=== PATIENT | male | born 1970 | race Caucasian/White ===

== ENCOUNTER 2017-02-19 10:46 | Emergency (ER) | payer BC ==
[~2017-02-19] VITALS: Ht 180.3 cm; Wt 150.0 kg
[2017-02-19] MEDS ORDERED: HYDROCODON-ACE1 EAC7 PO (11:12)
[2017-02-19] MEDS ORDERED: TRAMADOL HCL50 MG PO (11:13)
[2017-02-19] MEDS ORDERED: GLIPIZIDE5 MG PO (11:13)
[2017-02-19] MEDS ORDERED: ATORVASTATIN CA10 MG PO (11:14)
[2017-02-19] MEDS ORDERED: PANTOPRAZOLE SO40 MG PO (11:14)
[2017-02-19] MEDS ORDERED: LOSARTAN-HCTZ1 EACH PO (11:14)
[2017-02-19] MEDS ORDERED: CYCLOBENZAPRINE10 MG PO (11:15)
[2017-02-19] MEDS ORDERED: IBUPROFEN600 MG PO (11:15)
[2017-02-19 11:40] LABS: BASOPHIL COUNT 0.1 K/uL (0-0.1); EOSINOPHIL COUNT 0.3 K/uL (0-0.3); HEMATOCRIT 41.5 % (38.0-50.0); IMMATURE GRANULOCYTE (%) 0.5 % (0.0-0.7); INSTRUMENT ABS NEUTROPHIL CT 5.4 K/uL; LYMPHOCYTE COUNT 1.7 K/uL (1.0-2.8); MCH 29.3 PG (29.0-34.0); MCHC 34.2 G/DL (30.0-36.0); MCV 85.7 FL (86-99); MONOCYTE (%) 6.4 % (3-12); MONOCYTE COUNT 0.5 K/uL (0-0.8); NEUTROPHIL (%) 67.3 % (45-76); NEUTROPHIL COUNT 5.4 K/uL (1.8-6.4); PLATELET COUNT 207 K/uL (156-360); RED BLOOD COUNT 4.84 M/uL (4.00-5.50); WHITE BLOOD COUNT 8.1 K/uL (4.1-10.2)
[2017-02-19 11:53] LABS: CHLORIDE 103 mEq/L (99-109); POTASSIUM 3.7 mEq/L (3.7-5.4); SODIUM 141 mEq/L (136-147)
[2017-02-19 11:55] LABS: GLUCOSE 182 mg/dL (70-99)
[2017-02-19 11:57] LABS: ANION GAP 11 MEQ/L (2-14)
[2017-02-19 11:59] LABS: GFR ESTIMATE (CALCULATED) > 59 mL/min/
[2017-02-19 12:00] LABS: UREA NITROGEN (BUN) 12 mg/dL (9-23)
[2017-02-19 12:48] VITALS: BP 177/82
== END 2017-02-19 12:49 | disposition home or self-care (01) ==
LOC: EME 10:46
PROVIDERS: Emergency Medicine
DX: M96.89 Other intraoperative and postprocedural complications and disorders of the musculoskeletal system (principal); E11.65 Type 2 diabetes mellitus with hyperglycemia; I10 Essential (primary) hypertension; E78.5 Hyperlipidemia, unspecified; G47.30 Sleep apnea, unspecified; Z79.84 Long term (current) use of oral hypoglycemic drugs; E66.01 Morbid (severe) obesity due to excess calories; Z68.41 Body mass index [BMI] 40.0-44.9, adult
CPT/HCPCS: 80048; 85025; 87040; 99281; 99284